=== PATIENT | male | born 1990 | race Caucasian/White ===

== ENCOUNTER 2016-10-01 16:57 | Emergency (ER) | payer SELFPAY ==
[~2016-10-01] VITALS: Ht 190.5 cm; Wt 95.4 kg
[~2016-10-01 16:57] MED LIST: BENADRYL ALLERG25 MG PO; KENALOG,ARISTOC15 G2 TP; MEDROL DOSEPAK4 MG PO; [UNRECOGNIZED DRUG - OTHER] PO
[2016-10-01 17:49] LABS: HEMATOCRIT 48.5 % (38.0-50.0); MCH 32.2 PG (29.0-34.0); MCHC 36.1 G/DL (30.0-36.0); MCV 89.3 FL (86-99); MEAN PLAT.VOLUME 9.4 uM^3 (9.0-12.4); PLATELET COUNT 387 K/uL (156-360); RBC DIS.WIDTH-CV 11.9 % (11.8-14.6); RBC DIS.WIDTH-SD 38.8 % (39-53); RED BLOOD COUNT 5.43 M/uL (4.00-5.50); WHITE BLOOD COUNT 10.7 K/uL (4.1-10.2)
[2016-10-01 18:35] LABS: CHLORIDE 105 mEq/L (99-109); POTASSIUM 4.4 mEq/L (3.7-5.4); SODIUM 140 mEq/L (136-147)
[2016-10-01 18:37] LABS: GLUCOSE 158 mg/dL (70-99)
[2016-10-01 18:38] LABS: ANION GAP 18 MEQ/L (2-14)
[2016-10-01 18:39] LABS: TOTAL BILIRUBIN 1.1 mg/dL (0.0-1.0)
[2016-10-01 18:40] LABS: ALKALINE PHOSPHATASE 112 IU/L (3-129)
[2016-10-01 18:41] LABS: GFR ESTIMATE (CALCULATED) > 59 mL/min/
[2016-10-01 18:42] LABS: UREA NITROGEN (BUN) 13 mg/dL (9-23)
[2016-10-01 20:50] LABS: ADD MIUA? YES; BILIRUBIN NEGATIVE; BLOOD NEGATIVE; COLOR YELLOW ((YELLOW)); GLUCOSE (STRIP) NEGATIVE; KETONES >=80; LEUKOCYTES NEGATIVE; NITRITE NEGATIVE; PH, URINE 8.5 (5-8); PROTEIN (STRIP) 100; SPECIFIC GRAVITY 1.033 (1.000-1.030); UROBILINOGEN 0.2 MG/DL (0.2-1.0)
[2016-10-01] MEDS ORDERED: ZOFRAN ODT4 MG PO (21:03)
[2016-10-01 21:23] LABS: BACTERIA RARE; CASTS NONE SEEN /LPF; EPITHELIAL CELLS NONE SEEN; MUCUS 2+; UCUL ADDED? NO; WHITE BLOOD CELLS NONE SEEN /HPF (0-5)
[2016-10-01 21:24] LABS: CALCIUM PHOSPHATE CRYSTALS RARE; CRYSTALS PRESENT
[2016-10-01 22:01] VITALS: BP 150/74
== END 2016-10-01 22:05 | disposition home or self-care (01) ==
LOC: EME 16:57
DX: B34.9 Viral infection, unspecified (principal); R11.10 Vomiting, unspecified; R10.84 Generalized abdominal pain; F17.200 Nicotine dependence, unspecified, uncomplicated
CPT/HCPCS: 74022; 80053; 81003; 85027; 99281; 99284